=== PATIENT | female | born 1945 | race Caucasian/White ===

== ENCOUNTER → 2017-11-24 | Outpatient (CLI) | payer MEDICARE, OTHER | LOC: M.CT 09:31 | DX: R06.02 Shortness of breath (principal); R42 Dizziness and giddiness; R79.1 Abnormal coagulation profile; Z88.5 Allergy status to narcotic agent; Z88.8 Allergy status to other drugs, medicaments and biological substances ==

== ENCOUNTER → 2017-12-04 | Outpatient (CLI) | payer MEDICARE, OTHER | LOC: M.CT 11-26 15:23 | DX: G45.9 Transient cerebral ischemic attack, unspecified (principal); R26.9 Unspecified abnormalities of gait and mobility; R42 Dizziness and giddiness; R20.0 Anesthesia of skin; R53.1 Weakness ==

== ENCOUNTER → 2019-05-02 | Outpatient (CLI) | payer MEDICARE, OTHER | LOC: M.LAB 08:36 → M.MRI 13:30 | PROVIDERS: Family Medicine | DX: I67.82 Cerebral ischemia (principal); S09.90XA Unspecified injury of head, initial encounter; W19.XXXA Unspecified fall, initial encounter; Y93.89 Activity, other specified; Y92.89 Other specified places as the place of occurrence of the external cause; Y99.8 Other external cause status ==

== ENCOUNTER → 2019-08-11 | Outpatient (CLI) | payer MEDICARE, OTHER | LOC: M.LAB 04:07 | DX: E87.6 Hypokalemia (principal) ==